=== PATIENT | male | born 1945 | race Caucasian/White ===

== ENCOUNTER 2017-02-22 07:23 | Emergency (ER) | payer MEDICARE, OTHER ==
[~2017-02-22] VITALS: Ht 190.5 cm; Wt 87.6 kg
[2017-02-22 07:25] VITALS: BP 146/89; PULSE 101; RESP 16; TEMP 97.4; O2SAT 96
--- NOTE | 2017-02-22 07:41 | PD ---
HPI Chief Complaint: Abdominal Pain Time Seen by Provider: 07:32 Travel History International Travel<30 days: No Contact w/Intl Traveler<30days: No Traveled to known affect area: No History of Present Illness HPI c/o diffuse abd pain , for past 4 days, crampy at first, nonrad, without assoc n /v/d/fever/cough/back pain....now over last day pain seems to concentrate mostly over suprapubic region, again without any other assoc symptoms as reported. chart and rn notes reviewed pcp dr de jesus pmhx: chol, afib, stents pshx:appy PFSH Past Medical History Cardiovascular Problems: Yes (hx of htn off meds, stents in place) Social History Tobacco Use: No Allergies-Medications (Allergen,Severity, Reaction): Coded Allergies: No Known Allergies (Verified Allergy, Mild, 02/22/17) Reported Meds & Prescriptions Reported Meds & Active Scripts Active Reported Atorvastatin (Atorvastatin Calcium) 40 Mg Tab Unknown Dose PO HS Amiodarone (Amiodarone HCl) 100 Mg Tab Unknown Dose PO DAILY Carvedilol 6.25 Mg Tab Unknown Dose PO BID Tamsulosin (Tamsulosin HCl) 0.4 Mg Cap Unknown Dose PO HS Review of Systems General / Constitutional: No: Fever Eyes: No: Visual changes HENT: No: Headaches Cardiovascular: No: Chest Pain or Discomfort Respiratory: No: Shortness of Breath Gastrointestinal: Positive: Abdominal Pain Genitourinary: No: Dysuria Musculoskeletal: No: Pain Skin: No Rash Neurologic: No: Weakness Psychiatric: No: Depression Endocrine: No: Polydipsia Hematologic/Lymphatic: No: Easy Bruising Physical Exam Narrative GENERAL: SKIN: Warm and dry. HEAD: Atraumatic. Normocephalic. EYES: Pupils equal and round. No scleral icterus. No injection or drainage. ENT: No nasal bleeding or discharge. Mucous membranes pink and moist. NECK: Trachea midline. No JVD. CARDIOVASCULAR: Regular rate and rhythm. RESPIRATORY: No accessory muscle use. Clear to auscultation. Breath sounds equal bilaterally. GASTROINTESTINAL: Abdomen soft, non-tender, nondistended. MUSCULOSKELETAL: Extremities without clubbing, cyanosis, or edema. No obvious deformities. NEUROLOGICAL: Awake and alert. No obvious cranial nerve deficits. Motor grossly within normal limits. Five out of 5 muscle strength in the arms and legs. Normal speech. PSYCHIATRIC: Appropriate mood and affect; insight and judgment normal. Data Data Last Documented VS Vital Signs Date Time Temp Pulse Resp B/P (MAP) Pulse Ox O2 Delivery O2 Flow Rate FiO2 02/22/17 07:45 18 96 Room Air 02/22/17 07:25 97.4 101 146/89 (108) Orders Orders Complete Blood Count With Diff (02/22/17 07:32) Comprehensive Metabolic Panel (02/22/17 07:32) Lipase (02/22/17 07:32) Prothrombin Time / Inr (Pt) (02/22/17 07:32) Act Partial Throm Time (Ptt) (02/22/17 07:32) Urinalysis - C+S If Indicated (02/22/17 07:32) Ct Abd/Pel W/O Iv Contrast (02/22/17 07:32) Iv Access Insert/Monitor (02/22/17 07:32) Ecg Monitoring (02/22/17 07:32) Oximetry (02/22/17 07:32) NPO (02/22/17 07:32) Labs Laboratory Tests Test 02/22/17 07:37 02/22/17 07:45 Urine Collection Type CLEAN CATCH Urine Color YELLOW Urine Turbidity CLEAR Urine pH 7.0 Urine Specific [place] 1.021 Urine Protein TRACE mg/dL Urine Glucose (UA) NEG mg/dL Urine Ketones 15 mg/dL Urine Occult Blood TRACE Urine Nitrite NEG Urine Bilirubin NEG Urine Leukocyte Esterase NEG Urine RBC 0-3 /hpf Microscopic Urinalysis Comment CULT NOT INDICATED White Blood Count 13.7 TH/MM3 Red Blood Count 4.83 MIL/MM3 Hemoglobin 15.7 GM/DL Hematocrit 46.7 % Mean Corpuscular Volume 96.6 FL Mean Corpuscular Hemoglobin 32.5 PG Mean Corpuscular Hemoglobin Concent 33.6 % Red Cell Distribution Width 12.4 % Platelet Count 227 TH/MM3 Mean Platelet Volume 10.0 FL Neutrophils (%) (Auto) 74.6 % Lymphocytes (%) (Auto) 15.9 % Monocytes (%) (Auto) 8.2 % Eosinophils (%) (Auto) 0.5 % Basophils (%) (Auto) 0.8 % Neutrophils # (Auto) 10.2 TH/MM3 Lymphocytes # (Auto) 2.2 TH/MM3 Monocytes # (Auto) 1.1 TH/MM3 Eosinophils # (Auto) 0.1 TH/MM3 Basophils # (Auto) 0.1 TH/MM3 CBC Comment DIFF FINAL Differential Comment Prothrombin Time 11.4 SEC Prothromb Time International Ratio 1.0 RATIO Activated Partial Thromboplast Time 30.2 SEC Blood Urea Nitrogen 15 MG/DL Creatinine 1.10 MG/DL Random Glucose 109 MG/DL Total Protein 8.1 GM/DL Albumin 3.7 GM/DL Calcium Level 9.1 MG/DL Alkaline Phosphatase 105 U/L Aspartate Amino Transf (AST/SGOT) 18 U/L Alanine Aminotransferase (ALT/SGPT) 21 U/L Total Bilirubin 1.3 MG/DL Sodium Level 137 MEQ/L Potassium Level 4.0 MEQ/L Chloride Level 104 MEQ/L Carbon Dioxide Level 24.1 MEQ/L Anion Gap 9 MEQ/L Estimat Glomerular Filtration Rate 66 ML/MIN Lipase 547 U/L MDM Medical Decision Making Medical Screen Exam Complete: Yes Emergency Medical Condition: Yes Medical Record Reviewed: Yes Differential Diagnosis divertic v colitis v uti v pancreatitis Narrative Course no e/o obstruction based on liver enzymes, mild elev of lipase, however patient is tolerating po well with zofran....will attempt to d/c home with instructions to do alcohol free clear liquid diet over next 72 hours. Diagnosis Primary Impression: mild pancreatitis Additional Impression: Cholelithiasis Qualified Codes: K80.20 - Calculus of gallbladder without cholecystitis without obstruction Patient Instructions: Clear Liquid Diet (ED), Gallstones (ED), General Instructions, Pancreatitis (ED) Scripts Codeine-Acetaminophen (Codeine-Acetaminophen) 30-300 mg Tab 1 TAB PO Q4H Y for PAIN, #20 TAB 0 Refills Prov: Kumar Munoz MD 02/22/17 Ondansetron Odt (Zofran Odt) 4 Mg Tab 4 MG SL Q6HR Y for Nausea/Vomiting, #10 TAB 0 Refills Prov: Kumar Munoz MD 02/22/17 Disposition: 01 DISCHARGE HOME Condition: Stable Kumar Munoz MD Feb 22, 2017 07:41
[2017-02-22 07:45] VITALS: RESP 18; O2SAT 96
[2017-02-22] MEDS ORDERED: CARV6.252 PO (07:48)
[2017-02-22] MEDS ORDERED: TAMS0.4C4 PO (07:48)
[2017-02-22 07:49] LABS: BLOOD, URINE TRACE (NEG); GLUCOSE,URINE NEG (NEG); KETONE, URINE 15 mg/dL (NEG); NITRITE,URINE NEG (NEG)
[2017-02-22 07:50] LABS: METHOD OF COLLECTION CLEAN CATCH; URINE COLOR YELLOW (YELLW/STRAW)
[2017-02-22] MEDS ORDERED: AMIO0.1T PO (07:50)
[2017-02-22] MEDS ORDERED: ATOR40TA16 PO (07:50)
[2017-02-22 07:51] LABS: COMMENT (UR) CULT NOT INDICATED; CULTURE IF INDICATED CULT NOT INDICATED; RBC, URINE 0-3 /hpf (0-3)
[2017-02-22 08:02] LABS: AUTOMATED NEUTROPHIL # 10.2 TH/MM3 (1.8-7.7); BASOPHIL # 0.1 TH/MM3 (0-0.2); BASOPHIL % 0.8 % (0.0-2.0); EOSINOPHIL # 0.1 TH/MM3 (0-0.4); EOSINOPHIL % 0.5 % (0.0-4.0); HEMATOCRIT 46.7 % (39.0-51.0); HEMO FLAGS DIFF FINAL; LYMPH % 15.9 % (9.0-44.0); LYMPHOCYTE # 2.2 TH/MM3 (1.0-4.8); MEAN CELL VOLUME 96.6 FL (80.0-100.0); MEAN CORPUSCULAR HEMOGLOBIN 32.5 PG (27.0-34.0); MEAN CORPUSCULAR HGB CONC 33.6 % (32.0-36.0); MONO % 8.2 % (0.0-8.0); NEUT % 74.6 % (16.0-70.0); PLATELET COUNT 227 TH/MM3 (150-450); RED BLOOD COUNT 4.83 MIL/MM3 (4.50-5.90); RED CELL DISTRIBUTION WIDTH 12.4 % (11.6-17.2); WHITE BLOOD COUNT 13.7 TH/MM3 (4.0-11.0)
[2017-02-22 08:04] LABS: CHLORIDE 104 MEQ/L (98-107); SODIUM (NA) 137 MEQ/L (136-145)
[2017-02-22 08:08] LABS: APTT (PATIENT) 30.2 SEC (24.3-30.1); PROTHROMBIN TIME - PATIENT 11.4 SEC (9.8-11.6)
[2017-02-22 08:09] LABS: ANION GAP 9 MEQ/L (5-15); BICARBONATE 24.1 MEQ/L (21.0-32.0); BLOOD UREA NITROGEN 15 MG/DL (7-18)
[2017-02-22 08:12] LABS: ALT (GPT) 21 U/L (12-78); AST (GOT) 18 U/L (15-37); GLOMERULAR FILTRATION RATE 66 ML/MIN (>89)
[2017-02-22 08:14] LABS: TOTAL BILIRUBIN ADULT 1.3 MG/DL (0.2-1.0)
[2017-02-22 08:15] LABS: ALKALINE PHOSPHATASE 105 U/L (45-117)
--- NOTE | 2017-02-22 08:20 | RADRPT ---
EXAM DATE/TIME: 02/22/2017 07:59 [facility] COMPARISON: No previous studies available for comparison. INDICATIONS : Diffuse abdominal pain. ORAL CONTRAST: No oral contrast ingested. RADIATION DOSE: 13.48 CTDIvol (mGy) MEDICAL HISTORY : None SURGICAL HISTORY : Appendectomy. ENCOUNTER: Initial ACUITY: 4 - 6 days PAIN SCALE: 5/10 LOCATION: Bilateral abdomen TECHNIQUE: Volumetric scanning of the abdomen and pelvis was performed. Using automated exposure control and ad justment of the mA and/or kV according to patient size, radiation dose was kept as low as reasonably achievable to obtain optimal diagnostic quality images. DICOM format image data is available electro nically for review and comparison. FINDINGS: LOWER LUNGS: The visualized lower lungs are clear. LIVER: Homogeneous density without lesion. There is no dilation of the biliary tree. 5 mm calcified gallst one. SPLEEN: Normal size without lesion. PANCREAS: Within normal limits. KIDNEYS: Normal in size and shape. There is no mass, stone, or hydronephrosis. ADRENAL GLANDS: Within normal limits. VASCULAR: There is no aortic aneurysm. BOWEL/MESENTERY: No dilated loops of small or large bowel. A few scattered small diverticula in the sigmoid colon the re is some minimal induration of the fat in the left upper quadrant and a triangle between the stomac h, spleen, and pancreas. No focal fluid collections seen. No evidence of free fluid. ABDOMINAL WALL: Within normal limits. RETROPERITONEUM: There is no lymphadenopathy. BLADDER: No wall thickening or mass. REPRODUCTIVE: Within normal limits. INGUINAL: There is no lymphadenopathy or hernia. MUSCULOSKELETAL: Within normal limits for patient age. CONCLUSION: 1. Solitary small calcified gallstone. 2. Mild induration of the fat in the left upper quadrant without evidence of free fluid. Franklyn Mccoy MD on February 22, 2017 at 8:15 Board Certified Radiologist. This report was verified electronically.
[2017-02-22 08:23] VITALS: BP 133/90; PULSE 88; RESP 18; O2SAT 96
[2017-02-22] MEDS ORDERED: ZOFR4TAB3 SL (08:27)
[2017-02-22] MEDS ORDERED: CODE30TA2 PO (08:27)
[2017-02-22] MEDS ORDERED: ACETAMINOPHEN/CODEINE 300 MG/30 MG TAB PO ONE (08:30)
[2017-02-22] MEDS ORDERED: ONDANSETRON ODT 4 MG TAB PO ONE (08:30)
[2017-02-22] MEDS ORDERED: SODIUM CHLOR 0.9% 1000 ML INJ 1,000 ML IV ONE (08:30)
[2017-02-22 08:56] VITALS: BP 147/96; PULSE 86; RESP 18; O2SAT 96
[2017-02-22 09:18] VITALS: RESP 18
== END 2017-02-22 09:33 | disposition home or self-care (01) ==
LOC: PHED 07:23
DX: K85.90 Acute pancreatitis without necrosis or infection, unspecified (principal); K80.20 Calculus of gallbladder without cholecystitis without obstruction
CPT/HCPCS: 74176; 80053; 81001; 83690; 85025; 85610; 85730; 96360; 99285; J7030